=== PATIENT | female | born 1945 | race Caucasian/White ===

== ENCOUNTER 2021-11-23 06:41 | Day surgery (SDC) | payer MEDICARE, MEDICAID ==
[2021-11-23] VITALS (9 sets, daily range): BP systolic 104–135; BP diastolic 57–80
[~2021-11-23] VITALS: Ht 162.6 cm; Wt 69.0 kg
[~2021-11-23 06:41] MED LIST: ASPI-1265 PO; CLOP75TA34 PO; DULO20CA50 PO; HYDR-4353 PO; LISI10TA27 PO; METO-539 PO
[2021-11-23] MEDS ORDERED: diphenhydrAMINE 25mg capsule PO PRN (07:05)
[2021-11-23] MEDS ORDERED: normal saline 1,000 ML IV SCH (07:05)
[2021-11-23] MEDS ORDERED: HYDR-3972 PO (07:14)
[2021-11-23] MEDS ORDERED: GABA300C PO (07:14)
[2021-11-23] MEDS ORDERED: DULO60CA65 PO (07:15)
[2021-11-23] MEDS ORDERED: TIOT18CA3 INH (07:16)
[2021-11-23] MEDS ORDERED: ROSU40TA22 PO (07:17)
[2021-11-23] MEDS ORDERED: LEVO25TA7 PO (07:17)
[2021-11-23] MEDS ORDERED: FERR-119 PO (07:18)
[2021-11-23] MEDS ORDERED: BUDE10.22 INH (07:18)
[2021-11-23 07:35] LABS: BASOPHILS # (AUTO) 0.1 X10'3 (0-0.2); BASOPHILS % (AUTO) 1.8 % (0-1); EOSINOPHILS # (AUTO) 0.2 X10'3 (0-0.9); EOSINOPHILS % (AUTO) 3.5 % (0-6); HEMATOCRIT 38.2 % (35.0-45.0); HEMOGLOBIN 12.2 g/dl (12.0-16.0); LYMPHOCYTES # (AUTO) 1.5 X10'3 (1.1-4.8); LYMPHOCYTES % (AUTO) 23.8 % (21-51); MEAN CORPUSCULAR HGB CONC 31.8 g/dL (33.0-36.5); MEAN CORPUSCULAR VOLUME 75.5 FL (78-98); MEAN PLATELET VOLUME 6.6 FL (7.4-10.4); MONOCYTES # (AUTO) 0.5 X10'3 (0-0.9); NEUTROPHILS # (AUTO) 3.8 X10'3 (1.8-7.7); NEUTROPHILS % (AUTO) 61.9 % (42-75); PLATELET COUNT 316 X10'3 (140-440); RED BLOOD COUNT 5.06 X10'6 (4.20-5.60); WHITE BLOOD COUNT 6.1 X10'3 (4.5-11.0)
[2021-11-23 08:13] LABS: ALBUMIN 3.9 G/DL (3.4-5.0); ANION GAP 10 (8-16); BLOOD UREA NITROGEN 21 MG/DL (7-18); BUN/CREATININE RATIO 20.6 (6.6-38.0); CHLORIDE 104 MMOL/L (99-107); CREATININE 1.02 MG/DL (0.40-0.90); GLUCOSE 96 MG/DL (70-104); MAGNESIUM 1.8 MG/DL (1.5-2.4); POTASSIUM 4.2 MMOL/L (3.5-5.1); SODIUM 139 MMOL/L (135-145); TOTAL CARBON DIOXIDE 24.8 MMOL/L (24-32); eGFR 53 ML/MIN
[2021-11-23 08:33] LABS: ANISOCYTOSIS 2+; BURR CELLS FEW; ELLIPTOCYTES FEW; MICROCYTOSIS 1+; PLATELET ESTIMATE NORMAL; SCHISTOCYTES FEW
[2021-11-23] MEDS ORDERED: iohexol 350 MG/ML 50ML vial IV ONE (08:46)
[2021-11-23] MEDS ORDERED: midazolam 1 mg/ML 2ml injection ONE (08:46)
[2021-11-23] MEDS ORDERED: fentaNYL/PF 50MCG/1 ML 2ML syringe ONE (08:46)
[2021-11-23] MEDS ORDERED: LIDOCAINE 1% w/preservative (10 MG/ML) inj. 10mL VIAL ONE (08:46)
[2021-11-23] MEDS ORDERED: iohexol 350MG/ML 100ml bottle IV ONE (08:46)
[2021-11-23] MEDS ORDERED: heparin 1,000unit/ml 10ml vial 10 ML ONE (08:46)
[2021-11-23] MEDS ORDERED: verapamil 2.5 mg/ml inj IV ONE (08:47)
[2021-11-23] MEDS ORDERED: nitroGLYCERIN-Tridil 50MG/D5W 0 ML IV ONE (08:47)
[2021-11-23] MEDS ORDERED: OXAZEpam 15mg capsule PO PRN (10:35)
[2021-11-23] MEDS ORDERED: HYDROcodone/acetaminophen 10/325mg tab PO PRN (10:35)
[2021-11-23] MEDS ORDERED: HYDROcodone/acetaminophen 5mg/325mg tablet PO PRN (10:35)
== END 2021-11-23 14:00 | disposition home or self-care (01) ==
LOC: SSTAY O 06:41
PROVIDERS: ATTEND Internal Medicine Cardiovascular Disease
DX: R06.09 Other forms of dyspnea (principal); I25.719 Atherosclerosis of autologous vein coronary artery bypass graft(s) with unspecified angina pectoris; J44.9 Chronic obstructive pulmonary disease, unspecified; E78.00 Pure hypercholesterolemia, unspecified; Z90.2 Acquired absence of lung [part of]; Z85.118 Personal history of other malignant neoplasm of bronchus and lung; Z79.01 Long term (current) use of anticoagulants; Z79.899 Other long term (current) drug therapy; Z72.89 Other problems related to lifestyle; Z87.891 Personal history of nicotine dependence
CPT/HCPCS: 80048; 83735; 85025; 85610; 93005; 93459; 99152; 99153; C1760; C1769; C1894; J1644; J2250; J3010; J7030; Q0163; Q9967; 85008; A4620; A6258; J3490

== ENCOUNTER 2022-05-31 19:58 | Emergency (ER) | payer MEDICARE, MEDICAID ==
[~2022-05-31] VITALS: Ht 162.6 cm; Wt 65.5 kg
[~2022-05-31 19:58] MED LIST changes: -ASPI-1265 PO; +BUDE10.22 INH; -DULO20CA50 PO; +DULO60CA65 PO; +FERR-119 PO; +GABA300C PO; +HYDR-3972 PO; -HYDR-4353 PO; +LEVO25TA7 PO; -LISI10TA27 PO; +ROSU40TA22 PO; +TIOT18CA3 INH
[2022-05-31 22:54] VITALS: BP 158/80
[2022-05-31 23:41] LABS: BASOPHILS # (AUTO) 0.1 X10'3 (0-0.2); BASOPHILS % (AUTO) 0.9 % (0-1); EOSINOPHILS # (AUTO) 0.1 X10'3 (0-0.9); EOSINOPHILS % (AUTO) 1.3 % (0-6); HEMATOCRIT 35.5 % (35.0-45.0); HEMOGLOBIN 11.5 g/dl (12.0-16.0); LYMPHOCYTES % (AUTO) 11.8 % (21-51); MEAN CORPUSCULAR HEMOGLOBIN 24.1 PG (27.0-31.0); MEAN CORPUSCULAR HGB CONC 32.6 g/dL (33.0-36.5); MEAN PLATELET VOLUME 6.8 FL (7.4-10.4); MONOCYTES # (AUTO) 0.9 X10'3 (0-0.9); MONOCYTES % (AUTO) 9.8 % (2-12); NEUTROPHILS # (AUTO) 6.7 X10'3 (1.8-7.7); NEUTROPHILS % (AUTO) 76.2 % (42-75); PLATELET COUNT 237 X10'3 (140-440); RED BLOOD COUNT 4.79 X10'6 (4.20-5.60); RED CELL DISTRIBUTION WIDTH 20.5 % (11.5-14.5); WHITE BLOOD COUNT 8.7 X10'3 (4.5-11.0)
[2022-05-31 23:54] LABS: ALANINE AMINOTRANSFERASE 21 U/L (12-78); ALBUMIN 3.3 G/DL (3.4-5.0); ALKALINE PHOSPHATASE 100 IU/L (46-116); ANION GAP 8 (8-16); ASPARTATE AMINO TRANSFERASE 26 U/L (10-37); BILIRUBIN,TOTAL 0.5 MG/DL (0.1-1.0); BLOOD UREA NITROGEN 22 MG/DL (7-18); CALCIUM 9.2 MG/DL (8.5-10.1); CHLORIDE 105 MMOL/L (99-107); CREATININE 1.16 MG/DL (0.40-0.90); GLUCOSE 100 MG/DL (70-104); POTASSIUM 4.2 MMOL/L (3.5-5.1); SODIUM 140 MMOL/L (135-145); TOTAL CARBON DIOXIDE 27.2 MMOL/L (24-32); TOTAL PROTEIN 6.7 G/DL (6.4-8.2); eGFR 45 ML/MIN
[2022-06-01 00:01] LABS: MAGNESIUM 1.9 MG/DL (1.5-2.4)
[2022-06-01 00:06] LABS: ANISOCYTOSIS 3+; PLATELET ESTIMATE NORMAL
[2022-06-01 00:07] LABS: MICROCYTOSIS 1+
[2022-06-01 00:08] LABS: ELLIPTOCYTES FEW; SCHISTOCYTES FEW
== END 2022-06-01 00:36 | disposition home or self-care (01) ==
LOC: ER 19:58
DX: R07.89 Other chest pain (principal); I87.8 Other specified disorders of veins; I25.10 Atherosclerotic heart disease of native coronary artery without angina pectoris; I25.2 Old myocardial infarction; J44.9 Chronic obstructive pulmonary disease, unspecified; Z98.890 Other specified postprocedural states; Z79.899 Other long term (current) drug therapy
CPT/HCPCS: 36415; 71045; 80053; 83735; 83880; 84484; 85008; 85025; 93005; 99285

== ENCOUNTER 2022-06-01 17:07 | Emergency (ER) | payer MEDICARE, MEDICAID ==
[~2022-06-01] VITALS: Ht 162.6 cm; Wt 65.4 kg
[2022-06-01 17:32] VITALS: BP 99/62
[2022-06-01] MEDS ORDERED: iohexol 350MG/ML 100ml bottle IV ONE (18:14)
[2022-06-01 18:15] LABS: BASOPHILS # (AUTO) 0.1 X10'3 (0-0.2); HEMOGLOBIN 11.4 g/dl (12.0-16.0); MEAN PLATELET VOLUME 7.1 FL (7.4-10.4)
[2022-06-01 18:18] LABS: BASOPHILS % (AUTO) 1.4 % (0-1); EOSINOPHILS # (AUTO) 0.1 X10'3 (0-0.9); HEMATOCRIT 36.1 % (35.0-45.0); LYMPHOCYTES # (AUTO) 0.8 X10'3 (1.1-4.8); LYMPHOCYTES % (AUTO) 10.7 % (21-51); MEAN CORPUSCULAR HEMOGLOBIN 24.1 PG (27.0-31.0); MEAN CORPUSCULAR HGB CONC 31.6 g/dL (33.0-36.5); MEAN CORPUSCULAR VOLUME 76.1 FL (78-98); MONOCYTES # (AUTO) 0.6 X10'3 (0-0.9); MONOCYTES % (AUTO) 8.4 % (2-12); NEUTROPHILS # (AUTO) 5.8 X10'3 (1.8-7.7); NEUTROPHILS % (AUTO) 77.5 % (42-75); PLATELET COUNT 249 X10'3 (140-440); RED BLOOD COUNT 4.75 X10'6 (4.20-5.60); RED CELL DISTRIBUTION WIDTH 20.4 % (11.5-14.5); WHITE BLOOD COUNT 7.5 X10'3 (4.5-11.0)
[2022-06-01 18:28] LABS: ALANINE AMINOTRANSFERASE 19 U/L (12-78); ALBUMIN 3.5 G/DL (3.4-5.0); ALBUMIN/GLOBULIN RATIO 1.1 (1.1-1.5); ALKALINE PHOSPHATASE 97 IU/L (46-116); ANION GAP 8 (8-16); ASPARTATE AMINO TRANSFERASE 27 U/L (10-37); BILIRUBIN,TOTAL 0.8 MG/DL (0.1-1.0); BLOOD UREA NITROGEN 23 MG/DL (7-18); CHLORIDE 105 MMOL/L (99-107); CREATININE 0.96 MG/DL (0.40-0.90); GLUCOSE 69 MG/DL (70-104); POTASSIUM 3.7 MMOL/L (3.5-5.1); SODIUM 140 MMOL/L (135-145); TOTAL CARBON DIOXIDE 27.1 MMOL/L (24-32); TOTAL PROTEIN 6.8 G/DL (6.4-8.2); eGFR 57 ML/MIN
--- NOTE | 2022-06-01 18:57 | NUR ---
Patient returned from CT.
== END 2022-06-01 22:27 | disposition home or self-care (01) ==
LOC: ER 17:09
DX: I87.8 Other specified disorders of veins (principal); R22.43 Localized swelling, mass and lump, lower limb, bilateral; J44.9 Chronic obstructive pulmonary disease, unspecified; R13.10 Dysphagia, unspecified
CPT/HCPCS: 36415; 70490; 71250; 76604; 80053; 83880; 84484; 85025; 93005; 99285; J3490; Q9967